=== PATIENT | male | born 1995 | race Caucasian/White ===

== ENCOUNTER → 2022-12-24 13:37 | Outpatient (CLI) | payer OTHER, SELFPAY ==
--- NOTE | ~2022-12-24 | XR_ITS ---
EXAM: XR shoulder LT min 2V DATE: 12/24/2022 14:42 HISTORY: Pain of left shoulder joint . COMPARISON: None available. FINDINGS: Normal mineralization. Superior displacement of the distal clavicle relative to the acromi on, borderline AC joint widening, with widening of the coracoclavicular space, which seems to reduce in the external rotation view No acute fracture. Well-corticated osseous fragments adjacent to the di stal clavicle may represent an old distal clavicular fracture fragments. No lytic or blastic lesion. Joint spaces are maintained. No erosion or periosteal change. Soft tissues within normal limits. IMPRESSION: Presumed old distal clavicular fracture. Acute versus chronic high-grade acromioclavicula r joint injury. Reviewed, dictated and finalized at location K. IMPRESSION: Presumed old distal clavicular fracture. Acute versus chronic high- grade acromioclavicular joint injury.
--- NOTE | ~2022-12-24 | XR_ITS ---
XR knee RT min 4V 12/24/2022 14:42 Indication: Right knee pain Procedure: 4 views right knee Comparison: No prior studies for comparison. Findings: No fracture, subluxation or dislocation. No significant joint effusion. There is patella al ta. No foreign bodies. Impression: 1: No acute bone or joint abnormality. Reviewed, dictated and finalized at location B. Impression: 1: No acute bone or joint abnormality.
== END ==
PROVIDERS: PCP Nurse Practitioner Family; Visit Provider Nurse Practitioner Family
DX: M25.512 Pain in left shoulder (principal); M25.561 Pain in right knee
CPT/HCPCS: 73030; 73564

== ENCOUNTER 2024-03-16 13:54 | Outpatient (CLI) | payer OTHER, SELFPAY ==
[2024-03-16 20:24] LABS: Alanine Aminotransferase 43 U/L (6-50); Albumin Level 4.6 g/dL (3.5-5.1); Alkaline Phosphatase 117 U/L (38-126); Anion Gap 11 mmol/L (4-12); Aspartate Amino Transferase 48 U/L (17-59); Bilirubin,Total 0.6 mg/dL (0.2-1.3); Blood Urea Nitrogen 10 mg/dL (9-20); Calcium 9.5 mg/dL (8.4-10.2); Carbon Dioxide 26 mmol/L (22-30); Chloride 100 mmol/L (98-107); Cholesterol 225 mg/dL (0-200); Estimated Glomerular Filt Rate > 60; Glucose 97 mg/dL (65-110); HDL Direct 34 mg/dL; Potassium 3.8 mmol/L (3.4-5.0); Sodium 137 mmol/L (137-145); Triglycerides 177 mg/dL (<150)
[2024-03-16 20:35] LABS: LDL Cholesterol Direct 149 mg/dL
[2024-03-16 20:45] LABS: Hemoglobin A1C 5.5 % (<5.7)
[2024-03-16 20:46] LABS: Vitamin D 25 Hydroxy 60.4 ng/mL
== END 2024-03-16 13:55 | disposition home or self-care (01) ==
LOC: ANHBWCLAB 13:56
PROVIDERS: PCP Nurse Practitioner Adult Health; Visit Provider Nurse Practitioner Adult Health
DX: R73.09 Other abnormal glucose (principal); E55.9 Vitamin D deficiency, unspecified; E78.5 Hyperlipidemia, unspecified
CPT/HCPCS: 36415; 80053; 80061; 82306; 83036; 84443

== ENCOUNTER 2025-02-22 12:33 | Outpatient (CLI) | payer OTHER, SELFPAY ==
--- NOTE | ~2025-02-22 | XR_ITS ---
Exam: Abdomen 1V HISTORY: N20.0 - Calculus of kidney - Right flank pain COMPARISON: None. TECHNIQUE: Supine images of the abdomen FINDINGS: Bowel gas pattern is nonspecific and non-obstructive. There is no free air or deep sulci. No pathologic calcifications are seen. Lung bases are unremarkable. Bones and soft tissues are unremarkable. IMPRESSION: Nonspecific, nonobstructive bowel gas pattern. No calcifications are appreciated. Reviewed, dictated and finalized at location A.
--- OUTSIDE RECORDS SUMMARY | 2025-02-22 12:40 | XMS_ITS | Data Portability ---
Author Organization [place] [facility] [employer], Main Office Address [address] [place] [address] Care Team Providers Care Industrial Analyst Name Role Phone SALLIE CARCAMO Primary Care Provider [phone] SALLIE CARCAMO Referring Provider [phone] DANNY FORRESTER Phone Specialist Assessment Encounter Date Assessment Date Assessment LastModified by Organization Details LastModified Time 01/09/2023 01/09/2023 Impression: Kaleigh de jesus has a grade 5 AC separation left shoulder. I suspect that he had some prior injury to his acromioclavicular joint but is unclear what grade that would be. again, he repeatedly denies noticing any problems is left shoulder prior to this October 29 injury or having any history of injury to his shoulder that he can recall. He had never had popping in the left shoulder until his October 29 injury I think it is unlikely that he had a grade 5 AC separation before his injury at work on October 24. He is only 27 and it is very likely that he will have ongoing problems of instability popping and pain at the AC joint without surgical reconstruction such as a Patel Whitfield procedure with reconstruction of the coracoclavicular ligaments. That would generally be recommended for this problem. I would recommend obtaining an MRI scan of his left shoulder to rule out additional pathology such as slap lesion with long head biceps involvement and rotator cuff tear. I have discussed with him that my partner Dr. New is a shoulder specialist and I would recommend that he see Dr. New for definitive treatment Of his left shoulder grade 5 AC separation. 45 minutes spent in total care this patient more than half the time spent in rord-ei-roai care discussing the pathology with this patient explaining the options. Not available 01/09/2023 16:02:39 01/11/2023 01/11/2023 Impression: Kaleigh ent has anterior knee pain syndrome right knee. I suspect that he had a mild patellofemoral subluxation and likely pinched some of the parapatellar synovium between the patella and the femur. He may have a medial plica that is irritated based on the location of his tenderness and the infrapatellar fat pad is inflamed. I have discussed options with him. He could increase his anti-inflammatory medication. He is content with taking the Aleve 2 tablets in the morning for now. I would recommend a course of physical therapy for him for hamstring stretching especially and quadriceps stretching and hip abduction external rotation strengthening and core strengthening. He should avoid in the quadriceps strengthening as that will tend to aggravate the parapatellar soft tissue irritation I have discussed with him that it would be denson for him to lose weight. I have explained him that his BMI is 31.8 which means he has obesity. This mild obesity but weight loss would be beneficial. I have explained to him that in a deep squat the pressure on the kneecap and the parapatellar soft tissues is 7 times body weight. With his patella Leann and small patella he is at increased risk for developing patellofemoral arthritis as he gets older particularly if he remains obese. I have suggested that he strive for a 10% weight loss and strive to get his weight down to 205 lb or 200 lb. He continues to tolerate working. I have explained that he should avoid squatting and stairs the extent possible as these activities tend to overload the kneecap. I will see him back in 6 weeks assess his progress. If he has worsening problems he can call. 30 minutes were spent total care this patient more than half the time spent in [id number]-ln-myrv care. Not available 01/11/2023 20:21:52 02/22/2023 02/22/2023 patient returns after MRI scan of his left shoulder. He injured his left shoulder and right knee on 10/29/2022 when he missed the 1st step descending from his front end fructose loader and caught his fall with his left hand. He was diagnosed with anterior pain and significant patella App[place] and he was referred for physical therapy and this has helped his right knee quite a bit. It is doing much better. He has an occasional twinge of discomfort in the right knee with stairs. I recommended he continue with his home exercise program for that problem and continue working on weight loss. His left shoulder as chief complaint of popping and discomfort. His x-rays of the shoulder demonstrated evidence of a chronic appearing deformity of the AC joint with ossicle anterior to the head of the clavicle which is believed to be residuals from remote trauma to the AC joint and his x-rays demonstrated that it was a type 5 AC separation when comparing it with the other side. He has searched his memory in can recall no prior injury to his left shoulder. He is certain that he never had popping problems prior to this latest injury. His MRI scan demonstrates no evidence of bone marrow contusion or edema in the coracoclavicular ligaments which again demonstrate that the type 5 AC separation is chronic. There is no evidence of rotator cuff tear be does have rotator cuff tendinosis and a very small amount of fluid in the subacromial subdeltoid bursa. He did have some motion artifact and the superior labrum is difficult to assess there is likely mild fraying of the posterior superior labrum. No obvious abnormality in long of the biceps tendon noted. I reviewed the MRI images with him. I reviewed the findings with him. I have discussed with him that many patients will have problems from a grade 5 acromioclavicular joint separation. It would seem that prior to this latest injury he tolerated well and not notice any problems so I would be hopeful that we can return him to his pre-injury state I would recommend course of physical therapy impingement tendinitis protocol. He continues to work as tolerated. I will see him back in 6 weeks assess his progress. He can use anti-inflammatory medication on an as-needed basis. 30 minutes were spent for care of this patient more than half the time spent [id number] care. Not available 02/23/2023 12:29:29 04/10/2023 04/10/2023 HPI: Patient returns. He is here for follow-up of his right anterior knee pain as well as his left AC joint separation. Right knee is doing fine. He has occasional twinge but are not extremely tolerable. He is still having symptoms in left shoulder. He still gets a lot of popping in the shoulder with use this causes him pain. He also has pain when he is trying to lift carry things with the left arm. He has to put things down if there to having due to pain in the superior aspect of the shoulder. Again x-ray and MRI scan show grade 5 AC separation. Patient had a fall October that he feels caused the onset of the symptoms. impression: 27-year-old male who has anterior knee pain is doing well following fall in October. He is still having symptoms with his AC separation shoulder. I recommended we refer him to Dr. Martin for evaluation and treatment options his AC joint separation. This most likely need to be reconstructed given the fact he still having symptoms and his fall was approximately 6 months ago. He does have grade 5 AC separation seen on the MRI scan. We will make copies of all of his imaging take with him refer him to Dr. Andrade for options. malika Not available 04/10/2023 10:23:27 Plan of Treatment Reminders Order Date Submit Date Provider Last Modified By Organization Details Last Modified Time Details Appointments None recorded. Lab lipid panel, serum [address] (Lab), [address] [place], [address], 3 08:44:47 TSH, serum or plasma [address] (Lab), [address] [place], [address], 3 08:44:47 CMP, serum or plasma [address] (Lab), [address] [place], [address], 3 08:44:46 glycohemog lobin, total, blood [address] (Lab), [address] [place], [address], 3 08:44:47 CBC w/ auto diff [address] (Lab), [address] [place], [address], 08:44:47 testostero ne, free + total, serum [address] (Lab), [address] [place], [address], 08:44:46 vitamin B12 + folate, serum or blood [address] (Lab), [address] [place], [address], 3 08:44:46 vitamin D, 25-hydroxy , total, serum [address] (Lab), [address] [place], [address], 3 08:44:46 Referral None recorded. Procedures None recorded. Surgeries None recorded. Imaging XR, clavicle 2022 023 [email or web address], [address], [place], [address], 17:48:39 MRI, shoulder, w/o contrast 2022 023 LEWIS Not available 12:42:41 Medication Orders None recorded. Patient TargetsNo targets recorded. Patient Instructions Encounter Date Encounter Id Patient Instructions Last Modified By Organization Details Last Modified Time 07/04/2023 [id number] prn. [email or web address] Not available 07/04 16:09:05 Reason for Referral None Reported. Results Created Date Observation Date Name Description Value Unit Range Abnormal Flag Note LastModifiedBy Organization Detail LastModifiedTime 12/25/19 23 12/24/2022 XR, knee No observ ation record ed. [address] [facility] [address], [place], [address], 12/24/2022 18:06:15 12/25/19 23 12/24/2022 XR, shoul demario, 2 or more view No observ ation record ed. [facility] [address], [place], [address], 12/25/2022 10:23:09 01/10/20 23 XR, clavi johny No observ ation record ed. [facility] [address], [place], [address], 01/09/2023 15:55:24 02/13/20 MRI, juan jose hanks, w/o contr ast [facility] [address] [address] [phone] Patien t Name: YOBANI FRANCO Access ion #: [id number] Sex: M : 1994 0 4 Dictat ed By: Edy camara Attend ing Physic liza: RIKKI GARCIA Physic liza: BRYN ROSALES Exam Date: 2022 08:31 AM Exam Name: MRI SHOULD ER LT WO Admitt ing Diagno sis(es ): CLINIC AL INFORM ATION: Left should er pain after injury at work. TECHNI TAMAR INFORM ATION: Multis equenc e multip lanar MRI images of the left should er were obtain ed withou t contra st. COMPAR FLRO: None. INTERP RETATI ON: Acromi oclavi cular joint: There is mild acromi oclavi cular capsul ar hypert rophy with mild edema. There is a downwa rd slopin g acromi on, mildly impres sing on the supras pinatu s myoten dinous juncti on. Small amount of fluid in the subacr omial/ subdel toid bursa. Rotato r cuff: Mild tendin osis of the distal supras pinatu s and infras pinatu s tendon s. No tear. Mild tendin osis of the distal subsca pulari s tendon withou t eviden ce of tear. Teres minor tendon is intact and otherw ise unrema rkable . Biceps tendon : No signif icant tendin osis. No eviden ce of attrit ion or tear. Labrum : Motion artifa ct limits evalua tion of the labrum for subtle findin gs. Likely mild frayin g of the process tech ior superi or labrum . Bones: No fractu re or focal marrow contus ion. Muscle s: Normal muscle bulk. No atroph y. Other: No other signif icant findin gs. CONCLU PAUL: 1. Motion artifa ct limits evalua tion for subtle findin gs. 2. Rotato r cuff tendin osis. No rotato r cuff tear. 3. Likely mild frayin g of the process tech ior superi or labrum . 4. Mild acromi oclavi cular hypert rophy. Mild subacr omial/ subdel toid bursit is. Electr onical ly Signed by: Edy camara at 2022 11:40: 30 AM Page 1 [email or web address] [facility] (Imaging) [address] [place], [address], 02/13/2023 14:57:06 Result Notes Documentation Provider Name and Address Organization Details Recorded Time Mri, Shoulder, W/o Contrast : [facility] [address] [place] [address] Patient Name: YOBANI FRANCO Sex: M : 1995 Dictated By: Rich Mesa Attending Physician: RIKKI TRAN Ordering Physician: CHELSEA ROSALES Exam Date: 02/12/2023 08:31 AM Exam Name: MRI SHOULDER LT WO Admitting Diagnosis(es): CLINICAL INFORMATION: Left shoulder pain after injury at work. TECHNICAL INFORMATION: Multisequence multiplanar MRI images of the left shoulder were obtained without contrast. COMPARISON: None. INTERPRETATION: Acromioclavicular joint: There is mild acromioclavicular capsular hypertrophy with mild edema. There is a downward sloping acromion, mildly impressing on the supraspinatus myotendinous junction. Small amount of fluid in the subacromial/subdeltoid bursa. Rotator cuff: Mild tendinosis of the distal supraspinatus and infraspinatus tendons. No tear. Mild tendinosis of the distal subscapularis tendon without evidence of tear. Teres minor tendon is intact and otherwise unremarkable. Biceps tendon: No significant tendinosis. No evidence of attrition or tear. Labrum: Motion artifact limits evaluation of the labrum for subtle findings. Likely mild fraying of the posterior superior labrum. Bones: No fracture or focal marrow contusion. Muscles: Normal muscle bulk. No atrophy. Other: No other significant findings. CONCLUSION: 1. Motion artifact limits evaluation for subtle findings. 2. Rotator cuff tendinosis. No rotator cuff tear. 3. Likely mild fraying of the posterior superior labrum. 4. Mild acromioclavicular hypertrophy. Mild subacromial/subdeltoid bursitis. 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, [facility] [address], [place], [address] , [employer] 3 14:12:44 Pain of left shoulder joint 2072702924576 9109 Active 2022 Sallie Carcamo NP [address] [facility], [facility] [address], [place], [address] , [employer] 3 14:11:49 Pain of right knee joint 8689295594123 00 Active 2022 Sallie Carcamo NP [address], [place], [address] , [facility] 3 14:12:01 Pain of right shoulder joint 3609376200740 9100 Active 2022 ANNA Callejas cynthia [facility] [employer] [facility] 3 10:22:11 Fatigue 50467486 Active 2022 Sallie Carcamo NP [address], [facility] [address], [place], [address] , [facility] 3 15:57:36 Problem Notes None recorded. Medical Equipment None Reported. Allergies No known drug allergies Medications Name Sig Start Date Stop Date Status Note LastModified by Organization Details LastModified Time Medrol (Ty) 4 mg tablets in a dose pack Take po per label 01/09 completed Not Available Not Available Not Available Zithromax Z-Ty 250 mg tablet TAKE 2 TABLETS (500 MG) BY ORAL ROUTE ONCE DAILY FOR 1 DAY THEN 1 TABLET (250 MG) BY ORAL ROUTE ONCE DAILY FOR 4 DAYS 12/13 completed Not Available Not Available Not Available Kenalog 40 mg/mL suspension for injection Take 1 mL every day by injection route. 12/13 completed Not Available Not Available Not Available armodafinil 150 mg tablet Take 1 tablet every day by oral route for 30 days. 03/27 completed Not Available Not Available Not Available Vitals Date Recorded Body height Body mass index (BMI) Body weight Provider Name and Address Organization Details Last Updated DateTime 01/09/2023 180.34 cm 31.8 kg/m2 341452.06 g Marcela Sauceda MADYManny [facility] [employer] 01/09/2023 10:25:57 Date Recorded Body height Provider Name an d Address Organization Details Last Updated DateTime 01/11/2023 180.34 cm Marcela Sauceda MADYManny [facility] 01/11/2023 10:07:25 Date Recorded Body height Provider Name an d Address Organization Details Last Updated DateTime 02/22/2023 180.34 cm ANNA Callejas [facility] [employer] 02/22/2023 09:23:47 Date Recorded Body height Provider Name an d Address Organization Details Last Updated DateTime 04/10/2023 180.34 cm ANNA Callejas [place] [employer] [facility] [employer] 04/10/2023 09:27:13 Date Recorded Body height Body mass index (BMI) Body weight Body temperature Heart rate Oxygen saturation Oxygen saturation in Arterial blood by Pulse oximetry Systolic And Diastolic Provider Name and Address Organization Details Last Updated DateTime 180.34 cm 33.1 kg/m2 514251. 14 g 98.6 [degF] 89 /min 95 % 95 % 134/93 mm[Hg] Aliza Zuniga [place] [employer] 15:19:15 Social History Question Answer Notes LastModified by Organizat ion Details LastModified Time Tobacco Smoking Status Never Smoker Not Available [facility] 10/04/2022 00:26:18 Do You Have An Advance Directive? No Information not available 12/13/2022 Is Blood Transfusion Acceptable In An Emergency? Yes Information not available 12/13/2022 What Is Your Level Of Caffeine Consumption? Moderate [id number] Information not available 10/04/2022 What Is Your Code Status? Full Code Information not available 12/13/2022 In The 14 Days Before Symptom Onset, Have You Had Close Contact With A Laboratory-confir med COVID-19 While That Case Was Ill? No Information not available 12/13/2022 In The 14 Days Before Symptom Onset, Have You Had Close Contact With A Person Who Is Under Investigation For COVID-19 While That Person Was Ill? No Information not available 12/13/2022 What Type Of Diet Are You Following? REGULAR [id number] Information not available 10/04/2022 What Is The Highest Grade Or Level Of School You Have Completed Or The Highest Degree You Have Received? [id number] Information not available 12/13/2022 Have There Been Any Changes To Your Family Or Social Situation? No Information no t available 12/13/2022 Are There Any Guns Present In Your Home? No Information not available 12/13/2022 Do You Use Insect Repellent Routinely? Yes Information not available 12/13/2022 Where Do You Live? [facility] Information not available 12/13/2022 Do You Have A Medical Power Of Heel Brusher? No Information not available 12/13/2022 How Many Children Do You Have? -1 Information not available 12/13/2022 Do You Have Any Pets? Yes Information not available 12/13/2022 Do You Use Protection During Sex? Always Information not available 12/13/2022 What Is Your Relationship Status? Information not available 12/13/2022 Do You Use Your Seat Belt Or Car Seat Routinely? Yes Information not available 12/13/2022 Are You Sexually Active? Yes Information not available 12/13/2022 Do You Have Smoke And Carbon Monoxide Detectors In Your Home? Yes Information not available 12/13/2022 Are There Any Smokers In Your House? No Information not available 12/13/2022 Do You Participate In Social Media? Yes Information not available 12/13/2022 Do You Use Sunscreen Routinely? Yes Information not available 12/13/2022 Have You Recently Traveled Abroad? No Information not available 12/13/2022 Sex: Unknown Functional Status Question Answer Note LastModified by Organizat ion Details LastModified Time Do you use any illicit or recreational drugs? No [id number] Information not available 10/04/2022 Do you or have you ever used any other forms of tobacco or nicotine? No [id number] Information not available 10/04/2022 What is your level of alcohol consumption? Occasional [id number] Information not available 10/04/2022 Are you currently employed? Yes Information not available 12/13/2022 What is your occupation? [employer] Information not available 12/13/2022 What is your exercise level? Moderate [id number] Information not available 10/04/2022 Mental Status Question Answer Note LastModified by Organization D etails LastModified Time Do you feel stressed (tense, restless, nervous, or anxious, or unable to sleep at night)? [id number] Information not available 12/13/2022 Family History Relationship Description Onset Age of this Age Resolved Age Notes LastModified by Organization Details LastModified Time Father No current problems or disability [id number] [id number] Not available 10/04/2022 00:26:33 Mother No current problems or disability [id number] [id number] Not available 10/04/2022 00:26:33 Medical History No medical history recorded. Past Encounters Encounter ID Performer Location Encounter Start Date Encounter Closed Date Diagnosis/Indication Diagnosis SNOMED-CT Code Diagnosis ICD10 Code Diagnosis Note [id number] [facility] [place] [facility] [address] [place] [address] 10/02/2021 00:00:00 10/02/2021 16:22:01 [id number] [place] [address] [place] [address] 03/27/2022 00:00:00 03/27/2022 12:38:35 [id number] Sallie Carcamo NP [address] [address] 12/13/2022 13:51:31 12/13/2022 14:39:59 Hyperlipidemia 50565652 E78.5 recheck labs. Low fat diet. Anemia screening 8111492 07 Z13.0 Diabetes m ellitus screening 912124173 Z13.1 Thyroid di sorder screening 407804834 Z13.29 [id number] Sallie Carcamo NP [address] [address] 12/24/2022 13:54:59 12/24/2022 14:44:32 Pain of left shoulder joint 4537342451 4527286 M25.512 Xray left shoulder. Aleve otc prn. Pain of ri ght knee joint 7619256182 78622 M25.561 Xray knee [id number] Rikki Tran MD [facility] [address] [place] [address] 01/09/2023 09:55:52 01/09/2023 17:48:39 Pain of left shoulder joint 0599979699 2448777 M25.512 M25.511 [id number] Rikki Tran MD [facility] [address] [place] [address] 01/11/2023 10:01:04 01/14/2023 09:29:21 Pain of right knee joint 4645065617 36596 M25.561 [id number] Rikki Tran MD [facility] [address] [place] [address] 02/22/2023 09:21:50 02/25/2023 09:37:38 Pain of right knee joint 5733591831 10622 M25.561 Pain of le ft shoulder joint 8862953037 7079318 M25.000 [id number] Rikki Tran MD [facility] [address] [place] [address] 04/10/2023 09:18:13 04/10/2023 10:28:01 Pain of right knee joint 8296658419 45948 M25.561 Pain of le ft shoulder joint 7730233475 9630915 M25.564 [id number] Sallie Carcamo NP [address] [address] 07/04/2023 15:09:23 07/04/2023 16:16:30 Fatigue 28332293 R53.83 B12, testostero ne, vit d. Anemia screening 9058716 07 Z13.0 Diabetes m ellitus screening 921339618 Z13.1 Thyroid di sorder screening 706667572 Z13.29 Hyperlipid emia screening 038996266 Z13.220 Administra tion of tetanus vaccine 391397591 Z23 tdap to be done after surgery Health Concerns Section Related Observation LastModified by Organization Detai ls LastModified Time None Recorded Concern Status LastModified by Organization Details LastModified Time None Recorded Advance Directives Directive N: Payers Insurance Date Sequence Insurance Name Policy Number Policy Aly Covered Member ID Aly Member ID Guarantor Name 07/16/2023 1 [facility] (POS) [id number] Yobani Franco [id number] Yobani Franco 07/16/2023 CARLOS Franco Notes Date Note Type Note Provider Name and Address Organization Details Recorded Time 01/09/2023 text/html Patient is a 27-year-old gentleman was referred by Dr. Carcamo for evaluation of his left shoulder. He had no prior problems with his left shoulder until he injured it at work. 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 On October 29, 9 weeks ago, he was climbing out of a front end fructose loader truck and the platform is about 5 ft up near. He missed the 1st step and started to fall the grab the rail with his left hand caused him to abruptly jerk his left shoulder and he heard a pop in his left shoulder the. He also injured his knee is going to see me another day for that. Had an x-ray of the shoulder on 12/24/2022 of her imaging which demonstrated a higher grade AC separation with definite widening of the coracoclavicular space. There is well corticated osseous fragments 1 tiny and 1 6 x 12 mm the latter anterior to the distal clavicle consistent with an old acromial clavicular capsular injury resulting in dystrophic ossification within the capsule the AC joint alternatively could of had displaced fracture fragments of the clavicular head which I think is less likely. There is mild residual superior displacement of the distal clavicle relative to the acromion. Patient denies any recollection of any prior injury. He has been taking 2 Aleve per day. 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 He has not had any other treatment such as physical therapy as yet. The he complains of popping with any elevation of the shoulder overhead his never had this before. He can not lift any weight that the popping which is also painful. Rikki Tran MD [address] [place] [address], [facility] [address], [place], [address], [place] [facility] [employer] 01/09/2023 16:02:46 01/11/2023 text/html patient is a 27-year-old gentleman who we saw a couple of days ago for his left shoulder. He is here today for evaluation of his right knee. He injured his right knee at the same time he injured his left shoulder on 10/29/2022 when he missed the 1st step descending from the front fructose loader. The steps descending from the front fructose loader are more like the steps of the latter so to catch the steps it requires a person to turn around. he stepped out with his left foot and rotated his body to the right and when he missed a step that is when he grabbed the hand rail with his left hand. This caught his fall. His right foot never left the standing platform. It twisted in the process. He thinks it stayed out straight and he does not believe that he struck the knee are had any impact on the knee. He had immediate soreness. He does not think that it swelled up. He has been taking Aleve 2 tablets every morning. The knee soreness has been getting a little bit better but every time he climbs a flight of stairs it gets sore again. Walking squatting kneeling all aggravate his symptoms and he has noticed sensation of giving way. He has had no locking or catching. The pain is around the kneecap. X-rays from the ER 12/24/2022 were reviewed with the patient today. He has pronounced patella Leann. Direct measurement the length of the patella 44 mm length of the patellar tendon 75 mm in Keli ratio 1.7. Normal is 0.8-1.2. The patella tracks centrally in the sunrise view and is small in size for a male of his height. Rikki Tran MD [address] [facility], [place] [address], [place], [address], [employer] 01/11/2023 20:22:09 07/04/2023 text/html Here for follow up. Fatigue- even after a full nights rest. Dr. Kovacs will be doing surgery [place] on left shoulder in 1 weeks. Not aware of surgery clearance. Non smoker. Did not get labs done. Sallie Carcamo NP [address] [facility], [facility] [address], [place], [address], [employer] 07/04/2023 16:14:59
[2025-02-22 20:41] LABS: Add Urine Microscopic? NO; Appearance Urine Clear (Clear); Glucose Urine UA Negative (Negative); Leukocyte Esterase Ur Negative LEU/UL (Negative); Nitrate Urine Negative (Negative); Specific Grav Ur 1.023 (1.001-1.035)
== END 2025-02-22 12:34 | disposition home or self-care (01) ==
LOC: ANHBWCLAB 12:35
PROVIDERS: PCP Nurse Practitioner Adult Health; Visit Provider Nurse Practitioner Adult Health
DX: N20.0 Calculus of kidney (principal)
CPT/HCPCS: 74018; 81003